=== PATIENT | female | born 1960 | race Caucasian/White ===

== ENCOUNTER → 2019-05-07 | Outpatient (CLI) | payer MEDICARE, BC ==
--- NOTE | 2019-05-29 23:05 | SLEEP ---
[address] [address] SLEEP STUDY REPORT Name: RORY JAUREGUI Room: [facility]#: [id number] Admission: 05/07/19 Attend Phys: Johana Rodriguez Discharge: Date of : 58 Report #: [id number] THIS REPORT FOR: //name// CC: JESS PFEIFFER DO Jess Pfeiffer This study has been reviewed in its entirety by a board certified sleep specialist DATE OF SERVICE: 05/24/2019 HOME SLEEP STUDY REFERRING PHYSICIAN: Jess Pfeiffer D.O. The patient is 59 years old who weighs 260 pounds with a BMI of 49.1. The patient's [place] score was 9. The patient underwent home sleep study performed at [facility]. Total recording time was 461 minutes. During the night study, the patient had 92 obstructive apneas, 1 central apnea, no mixed apneas, and 90 hypopneas. The patient's apnea-hypopnea index was 25.8 per hour with a supine index of 36 per hour. Nocturnal oximetry study revealed an average oxygen saturation of 89% with the lowest of 73%. 230 minutes were spent in oxygen saturation of less than 90%. Mean heart rate was 74 beats per minute. IMPRESSION: 1. Moderate sleep apnea-hypopnea syndrome with an apnea-hypopnea index of 25.8 per hour. 2. Nocturnal hypoxia secondary to obstructive sleep apnea. RECOMMENDATIONS: 1. The patient would benefit from treatment of sleep apnea with CPAP. This can be done as an in-lab CPAP titration versus home auto-titration study. 2. Once the patient is optimally treated, then follow up in 4-6 weeks to assess compliance with treatment and to document clinical improvement. 3. Weight loss is strongly advised. 4. Avoid [employer] depressants. 5. Cautioned regarding driving until symptoms of sleep apnea resolve with the above recommendations. <ELECTRONICALLY SIGNED> By: José Antonio Perez MD 05/29/19 [id number] Perez MD /nt
== END ==
LOC: M.SLEEPLAB 04-23 14:00
DX: G47.30 Sleep apnea, unspecified (principal); G47.33 Obstructive sleep apnea (adult) (pediatric); R09.02 Hypoxemia; R53.82 Chronic fatigue, unspecified; G47.9 Sleep disorder, unspecified; E66.01 Morbid (severe) obesity due to excess calories; I10 Essential (primary) hypertension; Z68.41 Body mass index [BMI] 40.0-44.9, adult; Z79.899 Other long term (current) drug therapy